=== PATIENT | male | born 1935 | race Caucasian/White ===

== ENCOUNTER 2021-06-12 23:15 | Emergency (ER) | payer MEDICARE ==
[~2021-06-12] VITALS: Ht 172.7 cm; Wt 90.9 kg
[2021-06-12 23:25] VITALS: TEMP 97.7
[2021-06-12] MEDS ORDERED: NORVASC 10MG10 MG PO (23:58)
[2021-06-12] MEDS ORDERED: LIPITOR20 MG PO (23:58)
[2021-06-12] MEDS ORDERED: ASPIRIN 81M81 MG/TA2 PO (23:59)
[2021-06-12] MEDS ORDERED: CLARITIN 1010 MG/TAB PO (23:59)
[2021-06-12] MEDS ORDERED: COZAAR 25MG25 MG/TAB PO (23:59)
[2021-06-13 01:14] VITALS: BP 174/99; PULSE 85
== END 2021-06-13 01:16 | disposition home or self-care (01) ==
LOC: COL.ER 23:15
DX: S01.21XA Laceration without foreign body of nose, initial encounter (principal); S01.81XA Laceration without foreign body of other part of head, initial encounter; I10 Essential (primary) hypertension; E78.5 Hyperlipidemia, unspecified; Z79.899 Other long term (current) drug therapy; W18.02XA Striking against glass with subsequent fall, initial encounter